=== PATIENT | female | born 1975 | race Two or more races ===

== ENCOUNTER 2017-10-20 17:05 | Emergency (ER) | payer OTHER ==
--- NOTE | 2017-10-20 19:50 | ER Document Report ---
ED General - General Chief Complaint: Abdominal Pain Stated Complaint: CONCERNS Time Seen by Provider: 10/20/17 19:14 Mode of Arrival: Ambulatory Information source: Patient Notes: Patient is an otherwise healthy 42-year-old female who presents with chief complaint of leakage of fluid from her vagina. Patient reports that she is approximately 18 weeks with her first . Patient reports that yesterday she had an isolated episode of leaking clear fluid. Patient reports no leakage of fluid today however she does say she has mild low abdominal cramping that has been intermittent. Patient unsure if she has any movement and she states this is her first and she is not sure if she is just feeling gas bubbles. Patient denies any vaginal bleeding. Patient denies any fever or urinary symptoms. Patient is seen by [facility]. TRAVEL OUTSIDE OF THE [place] IN LAST 30 DAYS: No - Related Data Allergies/Adverse Reactions: No Known Allergies Allergy (Unverified 10/20/17 17:06) Past Medical History - General Information source: Patient - Social History Smoking Status: Never Smoker Frequency of alcohol use: Occasional Drug Abuse: None Family History: Reviewed & Not Pertinent Patient has suicidal ideation: No Patient has homicidal ideation: No - Medical History Medical History: Negative Renal/ Medical History: Denies: Hx Peritoneal Dialysis Surgical Hx: Negative - Immunizations Immunizations up to date: Yes Review of Systems - Review of Systems Constitutional: No symptoms reported EENT: No symptoms reported Cardiovascular: No symptoms reported Respiratory: No symptoms reported Gastrointestinal: No symptoms reported Genitourinary: No symptoms reported Female Genitourinary: See HPI Musculoskeletal: No symptoms reported Skin: No symptoms reported Hematologic/Lymphatic: No symptoms reported Neurological/Psychological: No symptoms reported Physical Exam - Vital signs Vitals: Temp Pulse Resp BP Pulse Ox 98.0 F 83 16 142/89 H 97 10/20/17 17:18 10/20/17 17:18 10/20/17 17:18 10/20/17 17:18 10/20/17 17:18 - Notes Notes: PHYSICAL EXAMINATION: GENERAL: Well-appearing, well-nourished and in no acute distress. HEAD: Atraumatic, normocephalic. EYES: Pupils equal round and reactive to light, extraocular movements intact, conjunctiva are normal. ENT: Nares patent, oropharynx clear without exudates. Moist mucous membranes. NECK: Normal range of motion, supple without lymphadenopathy LUNGS: Breath sounds clear to auscultation bilaterally and equal. No wheezes rales or rhonchi. HEART: Regular rate and rhythm without murmurs ABDOMEN: Soft, nontender, gravid abdomen. No guarding, no rebound. No masses appreciated. Female : No CVA tenderness. Musculoskeletal: Normal range of motion, no pitting or edema. No cyanosis. NEUROLOGICAL: Cranial nerves grossly intact. Normal speech, normal gait. Normal sensory, motor exams PSYCH: Normal mood, normal affect. SKIN: Warm, Dry, normal turgor, no rashes or lesions noted. Course - Re-evaluation Re-evalutation: 42-year-old otherwise healthy female who is a presents at 18 weeks gestation with possible amniotic fluid leakage. This was one isolated incident that happened yesterday. Patient denies any leakage of fluids today or any vaginal bleeding. Patient appears well, nontoxic and has no complaints at the moment. Will order urinalysis and send patient for an ultrasound. Urinalysis has resulted and is within normal OB ultrasound reveals closed cervix , heart rate of 150 bpm and amniotic fluid index of 12 cm. Patient will be discharged home, patient will follow up with [facility]. Patient to return if she develops any vaginal bleeding or abdominal pain. - Vital Signs Vital signs: Temp Pulse Resp BP Pulse Ox 98.0 F 73 18 126/84 H 99 10/20/17 22:00 10/20/17 22:00 10/20/17 22:00 10/20/17 22:00 10/20/17 22:00 Discharge - Discharge Clinical Impression: Abdominal cramping affecting Qualifiers: Weeks of gestation: 18 weeks Qualified Code(s): Z3A.18 - 18 weeks gestation of Condition: Stable Disposition: HOME, SELF-CARE Additional Instructions: Your workup today was normal. You do not have any infection in your urine. I have given you a copy of your OB ultrasound. There are no abnormalities noted your amniotic fluid index is within normal limits. Baby's heartbeat is 150 bpm. Likely the "gas bubbles" you are feeling is movement. Please follow -up with [facility] next week for a reevaluation. Return to the emergency department if you develop vaginal bleeding or worsening abdominal pain. Referrals: MIGUEL MARRUFO MD [Primary Care Provider] - Follow up as needed
--- NOTE | 2017-10-20 20:29 | RADIOLOGY REPORT (SQ) ---
EXAM DESCRIPTION: U/S OB LIMITED COMPLETED DATE/TIME: 10/20/2017 8:21 pm REASON FOR STUDY: well being, cervix, placenta, fluid levels COMPARISON: None. TECHNIQUE: Limited transabdominal grayscale ultrasound for evaluation of specific requested obstetri basim parameters. LIMITATIONS: None. FINDINGS: CERVICAL LENGTH: 3 cm Closed. ARMAAN: 12 cm. FHR: 150 beats per minute. PRESENTATION: Breech. OTHER: Posterior placenta. IMPRESSION: LIMITED OBSTETRICAL ULTRASOUND WITH MEASURED PARAMETERS DELINEATED ABOVE. Trimester of : Second trimester - 13 weeks 1 day to 27 weeks 6 days. TECHNICAL DOCUMENTATION: JOB ID: [id number] [employer]- All Rights Reserved Reading location - IP/workstation name: [email or web address]
[2017-10-20 20:55] LABS: APPEARANCE,URINE CLEAR; BILIRUBIN,URINE NEGATIVE (NEGATIVE); COLOR,URINE YELLOW; GLUCOSE, URINE NEGATIVE (NEGATIVE); KETONES,URINE NEGATIVE (NEGATIVE); LEUKOCYTE ESTERASE,URINE NEGATIVE (NEGATIVE); NITRITE,URINE NEGATIVE (NEGATIVE); PROTEIN,URINE NEGATIVE (NEGATIVE); URINE SPECIFIC GRAVITY 1.013; UROBILINOGEN,URINE NEGATIVE mg/dL (<2.0)
[2017-10-20 22:23] VITALS: BP 126/84
== END 2017-10-20 21:55 | disposition home or self-care (01) ==
LOC: ER 17:05
DX: O26.92 Pregnancy related conditions, unspecified, second trimester (principal); Z3A.18 18 weeks gestation of pregnancy
CPT/HCPCS: 76815; 81001; 99284

== ENCOUNTER 2017-12-26 16:47 | Emergency (ER) | payer OTHER ==
--- NOTE | 2017-12-26 18:37 | ER Document Report ---
ED General - General Chief Complaint: Palpitations Stated Complaint: IRREGULAR HEARTBEAT Time Seen by Provider: 12/26/17 18:26 Notes: Patient is a 42-year-old female with history of SVT that presents to the emergency department for chief complaint of palpitations. Patient states that she has been feeling palpitations over the last several weeks, last time was yesterday, she has a history of SVT, but is currently off of her beta-ute during her . She is currently 28 weeks gravid, and has been progressing well for , without complications thus far. She is currently asymptomatic, denies having any chest pain, shortness of breath, difficulty breathing, nausea, vomiting, abdominal pain, pelvic pain, dysuria or hematuria. She states she does have a spacecraft systems engineer, but recently moved, and has not been able to follow-up with them. She was seen at the OBs office today and was referred to the emergency department to be evaluated. Past Medical History: SVT Past Surgical History: Appendectomy, knee surgery Social History: Denies tobacco, alcohol or drug use. Family History: Reviewed and noncontributory for presenting illness Allergies: Reviewed, see documented allergy list. REVIEW OF SYSTEMS: Unless otherwise stated in this report the patient's positive and negative responses for review of systems for constitutional, eyes, ENT, cardiovascular, respiratory, gastrointestinal, neurological, genitourinary, musculoskeletal, and integumentary systems and related systems to the presenting problem are either as stated in the HPI or were not pertinent or were negative for the symptoms and/or complaints related to the presenting medical problem. PHYSICAL EXAMINATION: Vital signs reviewed, nursing noted reviewed. GENERAL: Well-appearing, well-nourished and in no acute distress. HEAD: Atraumatic, normocephalic. EYES: Eyes appear normal, extraocular movements intact, sclera anicteric, conjunctiva are normal. ENT: nares patent, oropharynx clear without exudates. Moist mucous membranes. NECK: Normal range of motion, supple without lymphadenopathy LUNGS: Breath sounds clear to auscultation bilaterally and equal. No wheezes rales or rhonchi. HEART: Regular rate and rhythm without murmurs ABDOMEN: Soft, nontender, normoactive bowel sounds. No rebound, guarding, or rigidity. No masses appreciated. EXTREMITIES: Nontender, good range of motion, no pitting or edema. NEUROLOGICAL: No focal neurological deficits. Moves all extremities spontaneously Motor and sensory grossly intact on exam. PSYCH: Normal mood, normal affect. SKIN: Warm, Dry, normal turgor, no rashes or lesions noted on exposed skin TRAVEL OUTSIDE OF THE [place] IN LAST 30 DAYS: No - Related Data Allergies/Adverse Reactions: No Known Allergies Allergy (Verified 12/26/17 16:50) Past Medical History - Social History Smoking Status: Never Smoker Family History: Reviewed & Not Pertinent Patient has suicidal ideation: No Patient has homicidal ideation: No Renal/ Medical History: Denies: Hx Peritoneal Dialysis Past Surgical History: Reports: Hx Cholecystectomy - Immunizations Immunizations up to date: Yes Physical Exam - Vital signs Vitals: Temp Pulse Resp BP Pulse Ox 97.8 F 78 16 116/65 99 12/26/17 17:40 12/26/17 17:40 12/26/17 17:40 12/26/17 17:40 12/26/17 17:40 Course - Re-evaluation Re-evalutation: 12/26/17 18:40 Patient seen and examined vital signs reviewed. Laboratory data and imaging were ordered as appropriate for the patient's presenting symptoms and complaint, with consideration of any critical or life threatening conditions that may be associated with their obtained history and exam as noted above. Results were reviewed when available and demonstrated urinary tract infection based on urinalysis, which was reviewed, very mild low sodium, and normal potassium, normal renal function, EKG was unremarkable, chest x-ray negative The patient was re-evaluated and was stable, continue to be asymptomatic Evaluation was most consistent with palpitations, patient not currently in SVT, she has not had any syncope, she is advised to check her heart rate when she has these episodes, and to perform Valsalva maneuvers, which she was educated on , and to follow-up with her spacecraft systems engineer and CLAIM PROCESSING SPECIALIST, she is given referral to one in this area. Results were discussed with the patient at this point, after careful consideration I feel that that patient can be discharged from the emergency department, the patient was educated treatments and reasons to return to the emergency department based on their presumed diagnosis as noted above, they were advised to followup with a primary care physician in 2-3 days. Patient was agreeable to plan of care. Patient was advised to follow-up with cardiology, advised to avoid caffeine, drink plenty of fluids, and discharged home on Keflex for 5 days and to follow-up with her CLAIM PROCESSING SPECIALIST. *Note is created using voice recognition software and may contain spelling, syntax or grammatical errors. 12/26/17 20:40 - Vital Signs Vital signs: Temp Pulse Resp BP Pulse Ox 97.8 F 78 16 116/65 99 12/26/17 17:40 12/26/17 17:40 12/26/17 17:40 12/26/17 17:40 12/26/17 17:40 - Laboratory Result Diagrams: 12/26/17 18:43 12/26/17 18:43 Laboratory results interpreted by me: 12/26/17 12/26/17 12/26/17 18:43 18:43 18:43 Hgb 11.0 L Hct 33.1 L RDW 14.8 H Sodium 136.3 L Carbon Dioxide 21 L Creatinine 0.51 L Urine Glucose (UA) 150 H - Diagnostic Test Radiology reviewed: Image reviewed - Negative for any acute pathology, Reports reviewed - Reviewed and negative for any acute pathology - EKG Interpretation by Me Additional EKG results interpreted by me: 12/26/17 18:37 EKG demonstrates normal sinus rhythm with a ventricular rate of 83 bpm, normal axis, normal intervals, no evidence of acute ischemia, no ST changes noted. Discharge - Discharge Clinical Impression: Palpitations UTI (urinary tract infection) Qualifiers: Urinary tract infection type: site unspecified Hematuria presence: without hematuria Qualified Code(s): N39.0 - Urinary tract infection, site not specified Condition: Good Disposition: HOME, SELF-CARE Instructions: Urinary Tract Infection ([facility]), Palpitations (Irregular or Rapid Heartrate) ([facility]) Additional Instructions: Please return to the emergency department if you have any worsening, or concern of your symptoms. Please return to the emergency department if you develop chest pain, difficulty breathing, severe abdominal pain, or ongoing vomiting. Please follow-up with your primary care physician in 2-3 days and any other recommended physicians. If prescribed, take all medications as directed. If you have any questions or concerns do not hesitate to return the emergency department for evaluation. Prescriptions: Cephalexin Monohydrate [Keflex 500 mg Capsule] 500 mg PO BID 5 Days #10 capsule Referrals: MIGUEL MARRUFO MD [Primary Care Provider] - Follow up in 3-5 days MAURISIO BAZAN MD [EMERITUS] - Follow up in 3-5 days (cardiology)
--- NOTE | 2017-12-26 19:03 | RADIOLOGY REPORT (SQ) ---
EXAM DESCRIPTION: CHEST 2 VIEWS COMPLETED DATE/TIME: 12/26/2017 6:53 pm REASON FOR STUDY: palpitations COMPARISON: None. EXAM PARAMETERS: NUMBER OF VIEWS: two views TECHNIQUE: Digital Frontal and Lateral radiographic views of the chest acquired. RADIATION DOSE: NA LIMITATIONS: none FINDINGS: LUNGS AND PLEURA: No opacities, masses or pneumothorax. No pleural effusion. MEDIASTINUM AND HILAR STRUCTURES: No masses or contour abnormalities. HEART AND VASCULAR STRUCTURES: Heart normal size. No evidence for failure. BONES: No acute findings. HARDWARE: None in the chest. OTHER: No other significant finding. IMPRESSION: NO ACUTE RADIOGRAPHIC FINDING IN THE CHEST. TECHNICAL DOCUMENTATION: JOB ID: [id number] [employer]- All Rights Reserved Reading location - IP/workstation name: [email or web address]
--- NOTE | 2017-12-26 19:23 | EKG REPORT ---
SEVERITY:- NORMAL ECG - SINUS RHYTHM : Confirmed by: Levi Anne MD 26-Dec-2017 19:21:53
[2017-12-26 19:35] LABS: ABSOLUTE EOSINOPHILS # (AUTO) 0.1 10^3/uL (0.0-0.6); ABSOLUTE LYMPHOCYTES (AUTO) 1.2 10^3/uL (0.5-4.7); ABSOLUTE MONOCYTES (AUTO) 0.5 10^3/uL (0.1-1.4); ABSOLUTE NEUT (AUTO) 5.3 10^3/uL (1.7-8.2); BASOPHILS % (AUTO) 0.3 % (0-2); EOSINOPHILS % (AUTO) 1.2 % (0-6); HEMATOCRIT 33.1 % (36.0-47.0); LYMPHOCYTES % (AUTO) 16.8 % (13-45); MEAN CORPUSCULAR HEMOGLOBIN 28.7 pg (27.0-33.4); MEAN CORPUSCULAR HGB CONC 33.3 g/dL (32.0-36.0); MEAN CORPUSCULAR VOLUME 86 fl (80-97); MONOCYTES % (AUTO) 6.5 % (3-13); PLATELET COUNT 397 10^3/uL (150-450); RED BLOOD COUNT 3.83 10^6/uL (3.72-5.28); RED CELL DISTRIBUTION WIDTH 14.8 % (11.5-14.0); SEGMENTED NEUTROPHILS % (AUTO) 75.2 % (42-78); TOTAL CELLS COUNTED % (AUTO) 100 %
[2017-12-26 19:37] LABS: APPEARANCE,URINE CLEAR; BILIRUBIN,URINE NEGATIVE (NEGATIVE); COLOR,URINE YELLOW; GLUCOSE, URINE 150 mg/dL (NEGATIVE); KETONES,URINE NEGATIVE (NEGATIVE); LEUKOCYTE ESTERASE,URINE NEGATIVE (NEGATIVE); NITRITE,URINE NEGATIVE (NEGATIVE); PROTEIN,URINE NEGATIVE (NEGATIVE); URINE SPECIFIC GRAVITY 1.014; UROBILINOGEN,URINE NEGATIVE mg/dL (<2.0)
[2017-12-26 20:08] LABS: ANION GAP 10 (5-19); BLOOD UREA NITROGEN 11 mg/dL (7-20); CALCIUM 8.7 mg/dL (8.4-10.2); CARBON DIOXIDE 21 mmol/L (22-30); CHLORIDE 105 mmol/L (98-107); GLUCOSE 76 mg/dL (75-110); POTASSIUM 4.4 mmol/L (3.6-5.0); SODIUM 136.3 mmol/L (137-145)
[2017-12-26 20:39] VITALS: BP 112/64
== END 2017-12-26 20:39 | disposition home or self-care (01) ==
LOC: ER 16:47
DX: O26.893 Other specified pregnancy related conditions, third trimester (principal); R00.2 Palpitations; O23.43 Unspecified infection of urinary tract in pregnancy, third trimester; O99.413 Diseases of the circulatory system complicating pregnancy, third trimester; I47.1 Supraventricular tachycardia; Z3A.28 28 weeks gestation of pregnancy
CPT/HCPCS: 36415; 71046; 80048; 81001; 84484; 85025; 87086; 93005; 93010; 99285